=== PATIENT | male | born 1955 | race Caucasian/White ===

== ENCOUNTER 2017-10-01 10:44 | Emergency (ER) | payer OTHER ==
[~2017-10-01] VITALS: Ht 177.8 cm; Wt 100.7 kg
[2017-10-01 10:52] VITALS: BP 157/104; PULSE 82; RESP 18; TEMP 97.6; O2SAT 97
[2017-10-01] MEDS ORDERED: EMPA1TAB3 PO (11:03)
[2017-10-01] MEDS ORDERED: ATOR40TA16 PO (11:03)
[2017-10-01] MEDS ORDERED: FISHCAP4 PO (11:03)
[2017-10-01] MEDS ORDERED: METO25TA3 PO (11:03)
[2017-10-01] MEDS ORDERED: ASPI81CH6 CHEW (11:03)
[2017-10-01] MEDS ORDERED: MULT-65 PO (11:03)
[2017-10-01] MEDS ORDERED: METF1000 PO (11:03)
[2017-10-01] MEDS ORDERED: LISI-515 PO (11:03)
[2017-10-01] MEDS ORDERED: OFLO0.3D9 RIGHT EAR (11:04)
--- NOTE | 2017-10-01 11:10 | PD ---
HPI Chief Complaint: ENT Complaint Time Seen by Provider: 10:56 Travel History International Travel<30 days: No Contact w/Intl Traveler<30days: No Traveled to known affect area: No History of Present Illness HPI 61-year-old male presents to the emergency room for evaluation of right ear pain and drainage started last night. 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 States he typically covers his ear with plugs when he goes swimming but did not do so on Thursday because he was playing with his grandkids at the beach. He did not develop pain until last night. States this morning it was dripping out of his ear so he cleaned it out with a Q-tip. Pain is localized to the ear that radiates into his neck. He has not taken anything for his symptoms or put anything in his ears. Reports chronic decreased hearing. No fevers. PFSH Past Medical History Cardiovascular Problems: Yes High Cholesterol: Yes Diabetes: Yes Patient Takes Glucophage: Yes Hypertension: Yes Past Surgical History Tonsillectomy: Yes Other Surgery: Yes (PARATHYROID REMOVED 2014, CLEFT LIP REPAIR) Social History Alcohol Use: Yes (OCCAS) Tobacco Use: No Substance Use: No Allergies-Medications (Allergen,Severity, Reaction): Coded Allergies: Influenza Virus Vaccines (Verified Allergy, Severe, AUTOIMMUNE RESPONSE, ) azithromycin (Verified Allergy, Severe, SVT, 10/01/17) Reported Meds & Prescriptions Reported Meds & Active Scripts Active Ofloxacin Otic Drops 0.3 % Drops 10 Drop RIGHT EAR DAILY Reported Multi-Vitamin Daily (Multiple Vitamin) 1 Tab Tab 1 Tab PO DAILY Fish Oil + D3 (Fish Oil-Cholecalciferol) 1,200-1,000 Mg-Unit Cap 1 Cap PO DAILY Lisinopril 20 Mg Tab 20 Mg PO DAILY Atorvastatin (Atorvastatin Calcium) 40 Mg Tab 40 Mg PO HS Metformin (Metformin HCl) 1,000 Mg Tab 1,000 Mg PO BIDPC Metoprolol Tartrate 25 Mg Tab 25 Mg PO BID Aspirin Low Dose (Aspirin) 81 Mg Chew 81 Mg CHEW DAILY Jardiance (Empagliflozin) 25 Mg Tab 25 Mg PO DAILY Review of Systems Except as stated in HPI: all other systems reviewed are Neg Physical Exam Narrative GENERAL: Well-nourished, well-developed male in no acute distress. Afebrile. Ambulatory. SKIN: Focused skin assessment warm/dry. HEAD: Normocephalic. EYES: No scleral icterus. No injection or drainage. NECK: Supple, trachea midline. No JVD or lymphadenopathy. EARS: Bilateral pinnae and external canals appear within normal limits. There is mild drainage in the right ear canal. Right tympanic membrane is absent. Left tympanic membrane without erythema, dullness or perforation. CARDIOVASCULAR: Regular rate and rhythm without murmurs, gallops, or rubs. RESPIRATORY: Breath sounds equal bilaterally. No accessory muscle use. Data Data Last Documented VS Vital Signs Date Time Temp Pulse Resp B/P (MAP) Pulse Ox O2 Delivery O2 Flow Rate FiO2 10/01/17 10:52 97.6 82 18 157/104 (121) 97 MDM Medical Decision Making Medical Screen Exam Complete: Yes Emergency Medical Condition: Yes Medical Record Reviewed: Yes Differential Diagnosis Otitis media, otitis externa, eustachian tube dysfunction Narrative Course 61-year-old male presents to the emergency room for evaluation of right ear pain and drainage that started last night. Patient went swimming in the ocean 5 days ago without ear protection. States he typically has to wear protection because he does not have a tympanic membrane on the right. Physical exam reveals mild drainage in the right ear canal. Right tympanic membrane is absent. History and physical exam are consistent with otitis externa. Patient discharged with prescription for ofloxacin eardrops and told to follow-up with her primary care physician or return for worsening symptoms. He understands and agrees to plan. Diagnosis Primary Impression: Right otitis externa Qualified Codes: H60.331 - Swimmer's ear, right ear Referrals: Ear / Nose / Throat Specialist Additional Instructions: Rest and drink plenty of fluids. Apply drops to the right ear as directed. Follow-up with a primary care physician. Return to the emergency room for worsening symptoms. Med/Other Pt SpecificInfo: Prescription(s) given Scripts Ofloxacin Otic Drops (Ofloxacin Otic Drops) 0.3 % Drops 10 DROP RIGHT EAR DAILY for Infection, #1 BOTTLE 0 Refills Prov: Oskar Tavera MD 10/01/17 Disposition: 01 DISCHARGE HOME Condition: Stable Candace Garcia Oct 01, 2017 11:10
== END 2017-10-01 11:29 | disposition home or self-care (01) ==
LOC: PHEFT 10:44
DX: H60.91 Unspecified otitis externa, right ear (principal); H60.331 Swimmer's ear, right ear; E78.00 Pure hypercholesterolemia, unspecified; E11.9 Type 2 diabetes mellitus without complications; I10 Essential (primary) hypertension
CPT/HCPCS: 99283